=== PATIENT | male | born 1950 | race Caucasian/White ===

== ENCOUNTER → 2016-03-27 | Outpatient (CLI) | payer BC, MEDICARE ==
[~2016-03-27] MED LIST: ALKA SELTZER PL PO; ASPIRIN 32325 MG/TA1 PO; ATORVASTATIN CA10 MG PO; BYSTOLIC2.5 MG PO; CARISOPRODOL350 MG PO; CELEBREX 200MG200 MG PO; ELIQUIS5 MG PO; EPA1000 MG PO; LISINOPRIL20 MG PO; LOVENOX 100100 MG/ML SQ; LOVENOX 3030 MG/0.3 SQ; MELOXICAM7.5 MG PO; METOPROLOL SUCC25 M1 PO; MYSOLINE50 MG PO; PROVENTIL0.09 MG/A1 IH; SOMA350 MG PO; TESSALON PERLE200 MG PO; TOPCARE ASPIRI325 MG PO; TRAMADOL 50 MG TAB PO; ULTRAM 50MG TAB50 MG PO; WARFARIN SOD5 MG PO; ZITHROMAX 250M250 MG PO; ZOCOR 10MG10 MG PO
== END ==
LOC: LAB 14:24
DX: R53.83 Other fatigue (principal); I82.493 Acute embolism and thrombosis of other specified deep vein of lower extremity, bilateral; Z86.711 Personal history of pulmonary embolism; I10 Essential (primary) hypertension; Z86.718 Personal history of other venous thrombosis and embolism

== ENCOUNTER → 2016-03-29 | Outpatient (CLI) | payer BC, MEDICARE | LOC: RAD 09:43 | DX: M79.605 Pain in left leg (principal); Z86.718 Personal history of other venous thrombosis and embolism | CPT/HCPCS: Q9967 ==

== ENCOUNTER → 2016-06-12 | Outpatient (CLI) | payer BC, MEDICARE ==
[2014-08-02 06:19] VITALS: BP 117/68
== END ==
LOC: LAB 13:21
DX: M25.561 Pain in right knee (principal); Z96.651 Presence of right artificial knee joint

== ENCOUNTER → 2016-08-19 | Outpatient (CLI) | payer BC, MEDICARE ==
[~2016-08-19] VITALS: Ht 182.9 cm; Wt 117.7 kg
[2016-08-19 09:00] VITALS: BP 151/73
== END ==
LOC: AMSURD 08:20 → LAB 08:20 → RAD 08:20
DX: I26.99 Other pulmonary embolism without acute cor pulmonale (principal); M17.4 Other bilateral secondary osteoarthritis of knee; I10 Essential (primary) hypertension; I80.221 Phlebitis and thrombophlebitis of right popliteal vein

== ENCOUNTER 2016-09-05 09:15 | Outpatient (RCR) | payer BC, MEDICARE ==
[~2016-09-05] VITALS: Ht 182.9 cm; Wt 112.3 kg
[~2016-09-05 09:15] MED LIST changes: -ATORVASTATIN CA10 MG PO
[2016-09-05 10:30] VITALS: BP 120/63
[2016-09-05] MEDS ORDERED: ATORVASTATIN CA10 MG PO (10:34)
[2016-09-05 10:35] VITALS: BP 129/62
[2016-09-06 09:11] VITALS: BP 157/79
[2016-09-06 09:40] VITALS: BP 153/73
[2016-09-07 09:22] VITALS: BP 142/75
[2016-09-07 09:58] VITALS: BP 135/68
[2016-09-08 09:01] VITALS: BP 157/82
[2016-09-08 09:34] VITALS: BP 135/72
--- NOTE | 2016-09-08 09:36 | NUR ---
Pt leaves ambulatory w/ cane w/ steady gait. to transport pt home.
[2016-09-09 09:23] VITALS: BP 147/83
[2016-09-10 09:06] VITALS: BP 149/74
[2016-09-10 09:39] VITALS: BP 150/73
[2016-09-11 09:00] VITALS: BP 164/78
[2016-09-12 12:02] VITALS: BP 169/80
[2016-09-13 08:47] VITALS: BP 159/84
[2016-09-14 08:41] VITALS: BP 130/70
[2016-09-14 09:08] VITALS: BP 144/71
[2016-09-15 09:01] VITALS: BP 137/57
[2016-09-15 09:53] VITALS: BP 133/61
--- NOTE | 2016-09-16 09:00 | NUR ---
Pt presents for IV rocephin today along w/ EGD/Colonoscopy. Scheduled IV rocephin administered while in pre op awaiting his EGD/Colon (not on the nursing floor). Lumen caps changed after EGD/Colon completed.
[2016-09-17 09:05] VITALS: BP 145/64
[2016-09-17 09:19] VITALS: BP 145/67
[2016-09-17 09:50] VITALS: BP 143/64
[2016-09-18 08:49] VITALS: BP 165/82
[2016-09-19 08:52] VITALS: BP 162/67
[2016-09-20 07:52] VITALS: BP 164/84
[2016-09-21 08:52] VITALS: BP 139/68
[2016-09-21 09:30] VITALS: BP 132/71
[2016-09-22 08:47] VITALS: BP 130/74
[2016-09-22 09:30] VITALS: BP 141/75
[2016-09-23 08:50] VITALS: BP 155/74
[2016-09-23 09:38] VITALS: BP 123/67
[2016-09-24 09:01] VITALS: BP 153/75
[2016-09-24 09:34] VITALS: BP 144/73
[2016-09-25 09:10] VITALS: BP 138/69
[2016-09-26 08:50] VITALS: BP 117/58
[2016-09-26 09:38] VITALS: BP 115/63
[2016-09-27 08:45] VITALS: BP 138/68
[2016-09-27 09:30] VITALS: BP 123/72
[2016-09-28 08:49] VITALS: BP 141/74
[2016-09-28 09:26] VITALS: BP 134/69
[2016-09-29 08:34] VITALS: BP 147/80
[2016-09-29 09:13] VITALS: BP 128/79
[2016-09-30 08:26] VITALS: BP 120/46
[2016-09-30 09:05] VITALS: BP 121/75
[2016-10-01 08:36] VITALS: BP 157/67
[2016-10-01 09:21] VITALS: BP 140/66
[2016-10-02 08:32] VITALS: BP 151/84
[2016-10-02 09:51] VITALS: BP 118/73
[2016-10-03 08:34] VITALS: BP 170/77
[2016-10-03 09:10] VITALS: BP 146/73
[2016-10-04 08:26] VITALS: BP 134/72
[2016-10-05 08:30] VITALS: BP 133/70
--- NOTE | 2016-10-05 09:06 | NUR ---
Pt's BP not recorded prior to erasing VS noted after pt had left. Pt dismissed ambulatory w/ steady gait. Denies needs or discomforts.
[2016-10-06 08:20] VITALS: BP 137/75
[2016-10-07 08:22] VITALS: BP 132/76
[2016-10-07 09:13] VITALS: BP 141/59
[2016-10-08 08:59] VITALS: BP 143/69
[2016-10-08 09:38] VITALS: BP 150/81
[2016-10-09 09:05] VITALS: BP 148/90
[2016-10-10 08:33] VITALS: BP 133/65
[2016-10-11 08:28] VITALS: BP 160/66
[2016-10-11 08:54] VITALS: BP 125/75
--- NOTE | 2016-10-11 08:57 | NUR ---
Pt leaves ambulatory w/ cane. PICC lumens flush easily w/ 10 mls NS and 1 ml Heplock.
[2016-10-12 09:05] VITALS: BP 149/63
[2016-10-12 09:06] VITALS: BP 140/71
[2016-10-13 09:25] VITALS: BP 131/72
[2016-10-14 08:23] VITALS: BP 137/61
[2016-10-14 08:50] VITALS: BP 130/75
[2016-10-15 08:13] VITALS: BP 146/77
[2016-10-15 08:48] VITALS: BP 141/72
[2016-10-16 08:45] VITALS: BP 152/65
[2016-10-16 09:45] VITALS: BP 168/70
== END 2016-10-16 11:00 | disposition home or self-care (01) ==
LOC: AMSURD 09:15
DX: Z48.00 Encounter for change or removal of nonsurgical wound dressing (principal); Z45.2 Encounter for adjustment and management of vascular access device
CPT/HCPCS: A6402; J0696; J1644

== ENCOUNTER → 2016-09-11 | Outpatient (CLI) | payer BC, MEDICARE ==
[2016-09-10 09:39] VITALS: BP 150/73
[~2016-09-11] MED LIST changes: +ATORVASTATIN CA10 MG PO
== END ==
LOC: LAB 08:53
DX: T84.53XD Infection and inflammatory reaction due to internal right knee prosthesis, subsequent encounter (principal); Z96.651 Presence of right artificial knee joint

== ENCOUNTER → 2016-09-16 | Day surgery (SDC) | payer BC, MEDICARE ==
[2016-09-15 09:53] VITALS: BP 133/61
== END ==
LOC: MSO 08:46
DX: Z12.11 Encounter for screening for malignant neoplasm of colon (principal); K92.1 Melena; D12.0 Benign neoplasm of cecum; D12.7 Benign neoplasm of rectosigmoid junction; Z96.651 Presence of right artificial knee joint; Z98.890 Other specified postprocedural states; Z79.01 Long term (current) use of anticoagulants; Z86.711 Personal history of pulmonary embolism; I10 Essential (primary) hypertension; Z86.718 Personal history of other venous thrombosis and embolism
CPT/HCPCS: 00810; J3490; J7120

== ENCOUNTER → 2016-09-18 | Outpatient (CLI) | payer BC, MEDICARE ==
[2016-09-18 08:49] VITALS: BP 165/82
== END ==
LOC: LAB 10:01
DX: T84.54XD Infection and inflammatory reaction due to internal left knee prosthesis, subsequent encounter (principal)

== ENCOUNTER → 2016-09-25 | Outpatient (CLI) | payer BC, MEDICARE ==
[2016-09-24 09:34] VITALS: BP 144/73
== END ==
LOC: LAB 08:46
DX: T84.53XD Infection and inflammatory reaction due to internal right knee prosthesis, subsequent encounter (principal)

== ENCOUNTER → 2016-10-02 | Outpatient (CLI) | payer BC, MEDICARE ==
[2016-10-01 09:21] VITALS: BP 140/66
== END ==
LOC: LAB 08:12
DX: T84.53XD Infection and inflammatory reaction due to internal right knee prosthesis, subsequent encounter (principal)

== ENCOUNTER → 2016-10-09 | Outpatient (CLI) | payer BC, MEDICARE ==
[2016-10-08 09:38] VITALS: BP 150/81
== END ==
LOC: LAB 08:10
DX: T84.53XD Infection and inflammatory reaction due to internal right knee prosthesis, subsequent encounter (principal); Z79.2 Long term (current) use of antibiotics

== ENCOUNTER 2016-10-16 10:00 | Outpatient (RCR) | payer BC, MEDICARE ==
[2016-08-19 09:00] VITALS: BP 151/73
== END 2016-10-16 10:30 | disposition home or self-care (01) ==
LOC: PT 10:00
DX: Z47.1 Aftercare following joint replacement surgery (principal); Z96.651 Presence of right artificial knee joint

== ENCOUNTER → 2016-10-16 | Outpatient (CLI) | payer BC, MEDICARE ==
[2016-10-15 08:48] VITALS: BP 141/72
== END ==
LOC: LAB 08:35
DX: T84.53XD Infection and inflammatory reaction due to internal right knee prosthesis, subsequent encounter (principal)

== ENCOUNTER → 2016-11-12 | Outpatient (CLI) | payer BC, MEDICARE ==
[2016-10-16 09:45] VITALS: BP 168/70
== END ==
LOC: LAB 08:36
DX: T84.53XA Infection and inflammatory reaction due to internal right knee prosthesis, initial encounter (principal)

== ENCOUNTER → 2017-01-07 | Outpatient (CLI) | payer BC, MEDICARE ==
[2017-01-07 14:10] LABS: EOS # 0.1 (0.04-0.40); EOS % 1.1 % (0.0-4.0); HEMATOCRIT 44.9 % (42.0-52.0); HEMOGLOBIN 14.5 g/dL (13.5-18.0); LYMPH# 1.9 (1.50-4.00); MEAN CELL VOLUME 95 fl (78-100); MEAN CORPUSCULAR HEMOGLOBIN 31 pg (27-31); MEAN CORPUSCULAR HGB CONC 32 g/dL (33-37); MEAN PLATELET VOLUME 9.5 fl (7.4-10.4); MONO # 0.7 (0.20-0.80); NEU # 3.5 (1.40-6.50); PLATELET COUNT 174 K/mm3 (130-400); RED BLOOD COUNT 4.75 M/mm3 (4.20-5.60); RED CELL DISTRIBUTION WIDTH 13.9 % (11.5-14.5); WHITE BLOOD COUNT 6.2 K/mm3 (4.8-10.8)
[2017-01-07 14:11] LABS: ALBUMIN 4.2 g/dL (3.5-5.0); BUN/CREATININE RATIO 20.7 (6.0-26.0); CALCIUM 9.4 mg/dL (8.4-10.2); ERYTHROCYTE SEDIMENTATION RATE 2 mm/hr (0-20); POTASSIUM 4.5 mmol/L (3.6-5.0); TOTAL BILIRUBIN 0.8 mg/dL (0.2-1.3); TOTAL PROTEIN 7.2 g/dL (6.3-8.2)
== END ==
LOC: LAB 10:22
PROVIDERS: Internal Medicine Infectious Disease
DX: T84.50XA Infection and inflammatory reaction due to unspecified internal joint prosthesis, initial encounter (principal)

== ENCOUNTER 2017-01-28 10:00 | Outpatient (RCR) | payer BC, MEDICARE | END 2017-01-28 10:30 | disposition home or self-care (01) | LOC: PT 10:00 | DX: M25.511 Pain in right shoulder (principal) | CPT/HCPCS: G8985-GP ==

== ENCOUNTER → 2017-05-07 | Outpatient (CLI) | payer BC, MEDICARE ==
[2017-05-07 11:09] LABS: HEMATOCRIT 44.5 % (42.0-52.0); HEMOGLOBIN 14.6 g/dL (13.5-18.0); MEAN PLATELET VOLUME 9.4 fl (7.4-10.4); RED BLOOD COUNT 4.69 M/mm3 (4.20-5.60)
== END ==
LOC: LAB 10:38
PROVIDERS: Orthopaedic Surgery
DX: Z01.812 Encounter for preprocedural laboratory examination (principal); M25.561 Pain in right knee

== ENCOUNTER → 2017-11-25 | Outpatient (CLI) | payer BC, MEDICARE ==
[2017-11-25 09:54] LABS: HEMATOCRIT 42.1 % (42.0-52.0); HEMOGLOBIN 13.9 g/dL (13.5-18.0); MEAN PLATELET VOLUME 9.8 fl (7.4-10.4); RED BLOOD COUNT 4.47 M/mm3 (4.20-5.60); WHITE BLOOD COUNT 5.2 K/mm3 (4.8-10.8)
== END ==
LOC: LAB 09:16
PROVIDERS: Orthopaedic Surgery
DX: M25.561 Pain in right knee (principal); R22.41 Localized swelling, mass and lump, right lower limb

== ENCOUNTER → 2017-12-24 | Outpatient (CLI) | payer BC, MEDICARE | LOC: RAD 06:56 | DX: M47.816 Spondylosis without myelopathy or radiculopathy, lumbar region (principal); M51.26 Other intervertebral disc displacement, lumbar region; M48.061 Spinal stenosis, lumbar region without neurogenic claudication; M51.24 Other intervertebral disc displacement, thoracic region; M79.659 Pain in unspecified thigh; Z98.890 Other specified postprocedural states | CPT/HCPCS: A9585 ==

== ENCOUNTER → 2018-02-05 | Outpatient (CLI) | payer BC, MEDICARE ==
[2018-02-05 15:04] LABS: HEMOGLOBIN 13.1 g/dL (13.5-18.0); MEAN CELL VOLUME 96 fl (78-100); MEAN CORPUSCULAR HEMOGLOBIN 31 pg (27-31); MEAN CORPUSCULAR HGB CONC 33 g/dL (33-37); MEAN PLATELET VOLUME 9.3 fl (7.4-10.4); PLATELET COUNT 182 K/mm3 (130-400); RED BLOOD COUNT 4.19 M/mm3 (4.20-5.60); RED CELL DISTRIBUTION WIDTH 13.8 % (11.5-14.5); WHITE BLOOD COUNT 5.2 K/mm3 (4.8-10.8)
[2018-02-05 16:28] LABS: LYMPHOCYTE 42 % (20-51); MONOCYTE 9 % (3-10); NEUTROPHILS 48 % (42-75)
[2018-02-05 16:30] LABS: ERYTHROCYTE SEDIMENTATION RATE 15 mm/hr (0-20)
== END ==
LOC: LAB 14:41
PROVIDERS: Family Medicine
DX: M25.569 Pain in unspecified knee (principal); R60.9 Edema, unspecified; Z98.890 Other specified postprocedural states

== ENCOUNTER 2018-03-20 14:00 | Outpatient (RCR) | payer BC, MEDICARE | END 2018-04-07 | disposition home or self-care (01) | LOC: PT | DX: M48.061 Spinal stenosis, lumbar region without neurogenic claudication (principal); M25.552 Pain in left hip; M25.551 Pain in right hip; Z98.890 Other specified postprocedural states | CPT/HCPCS: G8981-GP; G8982-GP; G8983-GP ==

== ENCOUNTER → 2018-08-27 | Outpatient (CLI) | payer BC, MEDICARE ==
[2018-08-27 11:21] LABS: POTASSIUM 4.3 mmol/L (3.5-5.1)
[2018-08-27 11:22] LABS: ALBUMIN 4.1 g/dL (3.4-4.8)
[2018-08-27 11:23] LABS: CALCIUM 9.5 mg/dL (8.3-10.5)
[2018-08-27 11:26] LABS: TOTAL BILIRUBIN 0.6 mg/dL (0.2-1.2)
== END ==
LOC: LAB 10:45
PROVIDERS: Family Medicine
DX: Z12.5 Encounter for screening for malignant neoplasm of prostate (principal); E78.5 Hyperlipidemia, unspecified; I10 Essential (primary) hypertension

== ENCOUNTER → 2019-03-10 | Outpatient (CLI) | payer BC, MEDICARE | LOC: RAD 14:01 | DX: J98.01 Acute bronchospasm (principal); J01.10 Acute frontal sinusitis, unspecified ==

== ENCOUNTER → 2019-10-11 | Outpatient (CLI) | payer BC, MEDICARE ==
[2019-10-11 08:43] LABS: HEMATOCRIT 40.6 % (42.0-52.0); MEAN CELL VOLUME 97 fl (78-100); MEAN CORPUSCULAR HEMOGLOBIN 31 pg (27-31); MEAN CORPUSCULAR HGB CONC 32 g/dL (33-37); MEAN PLATELET VOLUME 9.2 fl (7.4-10.4); PLATELET COUNT 195 K/mm3 (130-400); RED BLOOD COUNT 4.17 M/mm3 (4.20-5.60); RED CELL DISTRIBUTION WIDTH 13.9 % (11.5-14.5); WHITE BLOOD COUNT 6.2 K/mm3 (4.8-10.8)
[2019-10-11 08:50] LABS: ALBUMIN 3.9 g/dL (3.4-4.8); POTASSIUM 4.2 mmol/L (3.5-5.1)
[2019-10-11 08:51] LABS: CALCIUM 9.1 mg/dL (8.3-10.5)
[2019-10-11 08:53] LABS: TOTAL PROTEIN 6.7 g/dL (6.2-8.1)
[2019-10-11 08:54] LABS: TOTAL BILIRUBIN 0.4 mg/dL (0.2-1.2)
[2019-10-11 09:59] LABS: ERYTHROCYTE SEDIMENTATION RATE 10 mm/hr (0-20)
[2019-10-12 02:45] LABS: EOS # 0.1 (0.04-0.40); EOS % 1.7 % (0.0-4.0); LYMPH# 1.6 (1.50-4.00); MONO # 0.6 (0.20-0.80); NEU # 3.7 (1.40-6.50)
== END ==
LOC: LAB 08:28
PROVIDERS: Family Medicine
DX: I74.3 Embolism and thrombosis of arteries of the lower extremities (principal); Z86.711 Personal history of pulmonary embolism

== ENCOUNTER → 2020-05-03 | Outpatient (CLI) | payer BC, MEDICARE ==
[2020-05-03 17:08] LABS: HEMOGLOBIN 13.7 g/dL (13.5-18.0); MEAN CELL VOLUME 98 fl (78-100); MEAN CORPUSCULAR HEMOGLOBIN 31 pg (27-31); MEAN CORPUSCULAR HGB CONC 32 g/dL (33-37); WHITE BLOOD COUNT 5.5 K/mm3 (4.8-10.8)
[2020-05-03 17:09] LABS: MEAN PLATELET VOLUME 9.5 fl (7.4-10.4); PLATELET COUNT 193 K/mm3 (130-400); RED CELL DISTRIBUTION WIDTH 13.6 % (11.5-14.5)
[2020-05-03 17:32] LABS: NEUTROPHILS 57 % (42-75)
[2020-05-03 17:33] LABS: LYMPHOCYTE 31 % (20-51); MONOCYTE 12 % (3-10); TEAR DROP CELLS 1+
== END ==
LOC: LAB 16:09
PROVIDERS: Family Medicine
DX: K92.1 Melena (principal)

== ENCOUNTER → 2021-04-11 | Outpatient (CLI) | payer BC, MEDICARE | LOC: LAB 12:01 | DX: L03.115 Cellulitis of right lower limb (principal) ==